=== PATIENT | female | born 1960 | race American Indian/Alaskan Native ===

== ENCOUNTER 2020-06-04 16:10 | Emergency (ER) | payer OTHER ==
[~2020-06-04] VITALS: Ht 165.1 cm; Wt 69.6 kg
[~2020-06-04 16:10] MED LIST: BACLOFEN10 MG PO; CYCLOBENZAPRINE10 MG PO; METOPROLOL SUCC50 MG PO; PREGABALIN50 MG PO
[2020-06-04] MEDS ORDERED: ONDANSETRON ODT8 MG PO (18:42)
== END 2020-06-04 19:02 | disposition home or self-care (01) ==
LOC: ED 16:10
DX: A04.72 Enterocolitis due to Clostridium difficile, not specified as recurrent (principal); I10 Essential (primary) hypertension; F17.200 Nicotine dependence, unspecified, uncomplicated; Z88.6 Allergy status to analgesic agent; Z88.8 Allergy status to other drugs, medicaments and biological substances; Z79.899 Other long term (current) drug therapy
CPT/HCPCS: 80053; 85025; 96374; 99284-25; J2405; J7030

== ENCOUNTER 2020-06-13 03:30 | Emergency (ER) | payer OTHER ==
[~2020-06-13] VITALS: Ht 165.1 cm; Wt 69.6 kg
[~2020-06-13 03:30] MED LIST changes: +ONDANSETRON ODT8 MG PO
--- OUTSIDE RECORDS SUMMARY | 2020-06-13 03:34 | XMS ---
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 Sandip has no Care Guidelines for this patient. [facility] MO[facility] NOTE: Visits indicate total known visits. ED/UCC VISIT TRACKING (12 MO.) [facility] COMPLAINT: - VOMITING, BLOOD IN STOOL 06/04/2020 16:[address] 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
== END 2020-06-13 05:53 | disposition home or self-care (01) ==
LOC: ED 03:30
DX: K52.9 Noninfective gastroenteritis and colitis, unspecified (principal); I10 Essential (primary) hypertension; F17.200 Nicotine dependence, unspecified, uncomplicated; Z88.8 Allergy status to other drugs, medicaments and biological substances; Z79.899 Other long term (current) drug therapy
CPT/HCPCS: 74177; 80053; 81001; 83690; 85025; 96361; 96375; 99284-25; J1170; J2405; J7030; Q9967

== ENCOUNTER 2021-04-14 16:05 | Emergency (ER) | payer OTHER ==
[~2021-04-14] VITALS: Ht 165.1 cm; Wt 72.6 kg
--- OUTSIDE RECORDS SUMMARY | 2021-04-14 16:08 | XMS ---
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 E.Pa VISIT COUNT (12 MO.) 1 [facility] TOTAL 4 NOTE: Visits indicate total known visits. ED/UCC VISIT TRACKING (12 MO.) 04/14/2021 16:06 [facility] TYPE: Emergency COMPLAINT: - SOB, DIZZINESS, L SHOULDER PAIN 06/14/2020 16:19 [facility] TYPE: Emergency DIAGNOSES: - Dehydration - GI Bleeding - Enterocolitis due to Clostridium difficile, not specified as recurrent 06/13/2020 03:31 [facility] TYPE: Emergency COMPLAINT: - VOMITING, BLOOD IN STOOL DIAGNOSES: - Unspecified abdominal pain - Noninfective gastroenteritis and colitis, unspecified - Nicotine dependence, unspecified, uncomplicated - Allergy status to other drugs, medicaments and biological substances - 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 TYPE: Emergency COMPLAINT: - N/V/D DIAGNOSES: - Nausea with vomiting, unspecified - Other detention (current) drug therapy - Nicotine dependence, unspecified, uncomplicated - Allergy status to analgesic agent - Enterocolitis due to Clostridium difficile, not specified as recurrent - Essential (primary) hypertension - Allergy status to other drugs, medicaments and biological substances INPATIENT VISIT TRACKING (12 MO.) No inpatient visits to display in this time frame [email or web address]
[2021-04-14] MEDS ORDERED: TOPIRAMATE25 MG PO (16:23)
[2021-04-14] MEDS ORDERED: LEVOTHYROXINE25 MCG PO (16:23)
[2021-04-14] MEDS ORDERED: ATORVASTATIN CA10 MG PO (16:23)
[2021-04-14] MEDS ORDERED: TRAMADOL HCL50 MG PO (16:23)
[2021-04-14] MEDS ORDERED: MELOXICAM15 MG PO (16:24)
[2021-04-14] MEDS ORDERED: GABAPENTIN300 MG PO (16:24)
--- NOTE | 2021-04-15 20:35 | EKG ---
[facility] [address] [place], [place] [address] Signed Normal sinus rhythm Normal ECG No previous ECGs available Confirmed by LETICIA JAEGER DO ([id number]) on 04/15/2021 8:35:24 PM Electronically Signed By: LETICIA JAEGER DO 04/15/212034 PATIENT NAME: ILYA CARBONE Electrocardiogram DATE OF : 60 PHYSICIAN: LETICIA JAEGER DO REPORT #: [id number] REPORT IS CONFIDENTIAL AND NOT TO BE RELEASED WITHOUT AUTHORIZATION
== END 2021-04-14 20:45 | disposition home or self-care (01) ==
LOC: ED 16:05
DX: K52.9 Noninfective gastroenteritis and colitis, unspecified (principal); I10 Essential (primary) hypertension; Z88.8 Allergy status to other drugs, medicaments and biological substances; Z79.899 Other long term (current) drug therapy
CPT/HCPCS: 71046; 74177; 80053; 83735; 84484; 85025; 93005; 93010; 99284-25; J7040; Q9967